=== PATIENT | male | born 1955 | race Caucasian/White ===

== ENCOUNTER → 2016-12-30 | Outpatient (CLI) | payer OTHER ==
[~2016-12-30] MED LIST: ASPIRIN EC81 M1 PO; ATORVASTATIN CA10 MG PO; CARDIZEM CD120 M1 PO; ELIQUIS5 MG PO; K-DUR20 ME1 PO; NORVASC PO; PERCOCET 10/3251 TAB PO; PROTONIX PO; SPIRONOLAC1 TAB 25/2 PO; TOPROL XL PO; XARELTO20 MG PO
--- NOTE | ~2016-12-30 | CT16 ---
[facility] A Service of [facility] [place] RADIOLOGY TEXT RESULTS PATIENT: TORRES BARAJAS LOCATION: [facility] : 55 UNIT #: [id number] AGE: [address]: Joshua Hope MD SEX: M ORDER DR: [id number] [id number] [facility] [place], [place] [address] [id number] O MR#: [id number] [facility] #: [id number] NAME: TORRES BARAJAS : 1955 SEX: M STUDY DATE/TIME: 12/30/2016 16:13 UNIT: [facility] ROOM: STUDY DESCRIPTION: CT Angio Chest for PE Attending Physician: Joshua Hope M.D. Referring Physician: Joshua Hope M.D. Ordering Physician: Joshua Hope M.D. Primary Care Physician: Joshua Hope M.D. MEDICAL IMAGING REPORT This report is preliminary unless electronic signature is present EXAM CT scan of the chest with pulmonary embolus protocol. INDICATION Right-sided chest pain for 1 year with shortness of air. TECHNIQUE Patient was given 80 mL of Isovue-370 and spiral imaging was performed through the chest. 3D reconstructions of the pulmonary arteries were generated. This CT exam was performed with one or more of the following radiation dose reduction techniques: automatic exposure control, adjustment of mA and/or kV according to patient size, and iterative reconstruction. FINDINGS The pulmonary arteries were optimally opacified. There is no CT evidence of pulmonary embolus. The aorta is normal in size. The aorta is not opacified. There is no mediastinal or hilar adenopathy. The visualized portions of the upper abdomen are normal. The bones are unremarkable. The lungs are clear. IMPRESSION Normal study. No CT evidence of pulmonary embolus. Dictated by... Pratik Johnson M.D. THIS IS AN ELECTRONICALLY VERIFIED REPORT Pratik Johnson M.D. at 12/31/2016 11:36 AM FEL/jt [facility] A Service of [facility] [place] RADIOLOGY TEXT RESULTS PATIENT: TORRES BARAJAS LOCATION: [facility] : 55 UNIT #: [id number] AGE: [address]: Joshua Hope MD SEX: M ORDER DR: TD: 12/30/2016 17:58 JOB #: [id number] MEDICAL IMAGING REPORT Page 1 of 1 COPY
[2016-12-30 16:06] LABS: POC - CREATININE 1.02 mg/dL (0.64-1.27); POC - GFR >60.0 mL/min (>60)
== END | disposition home or self-care (01) ==
LOC: CCAT 15:02
PROVIDERS: Internal Medicine
DX: R07.9 Chest pain, unspecified (principal)
CPT/HCPCS: 71275; 82565; Q9967